=== PATIENT | female | born 1970 | race Caucasian/White ===

== ENCOUNTER → 2017-04-24 | Day surgery (SDC) | payer OTHER ==
--- NOTE | 2017-04-21 15:31 | Diagnostic Imaging Report ---
PROCEDURE: Frontal and lateral views of the chest. COMPARISON: None. INDICATIONS: PRE OPERATIVE CHEST X-RAY FOR FOOT SURGERY FINDINGS: Lines/tubes: None. Lungs: The lungs are well inflated and clear. There is no evidence of pneumonia or pulmonary edema. Pleura: There is no pleural effusion or pneumothorax. Heart and mediastinum: The heart and the mediastinum are normal. Bones: No acute bony abnormality. IMPRESSION: 1. No acute cardiopulmonary abnormalities. Nick Carlisle M.D. Dictated by: Nick Carlisle M.D. on 04/21/2017 at 15:30 Electronically approved by: Nick Carlisle M.D. on 04/21/2017 at 15:30
[~2017-04-24] MED LIST: ALPRAZOLAM1 MG PO; BENGAY113 GM TOP; BUPIVACAINE HCL 0.5% 10ML MPF VIAL INJ ONE; CLARITIN; CLINDAMYCIN PHOS 900MG/ D5W 50 50 ML IV ONE; CYMBALTA30 MG PO; DAYQUIL; DEXAMETHASONE SOD PHOS INJ 4 MG/ML VIAL ONE; EPHEDRINE SULFATE INJ 50 MG/10 ML SYR ONE; FENTANYL CITRATE/PF 100MCG/2 ML INJ ONE; GABAPENTIN400 MG PO; IBUPROFEN; KETOROLAC TROMETHAMINE 30 MG/ML VIAL ONE; LEVOTHYROXINE112 MCG PO; LIDOCAINE HCL 2% LOCAL INJ 5 ML SDV VIAL INJ ONE; MIDAZOLAM HCL 2 MG/2 ML VIAL ONE; NAPROSYN; NEOMYCIN/POLYMYX/BACITR OINT 0.9 GM PKT ONE; ONDANSETRON HCL INJ 2 MG/ML VIAL ONE; PROPOFOL IV EMULSION 10 MG/ML 20 ML VIAL ONE; SEVOFLURANE INHAL SOLN 250 ML PEN BTL ONE; SIMVASTATIN20 MG PO; SINUS; TYLENOL; ULTRAM50 MG PO; VASOTEC10 MG PO
--- OUTSIDE RECORDS SUMMARY | 2017-04-24 07:12 | XMS REPORT ---
Author Author [facility] Address Unknown Phone Unavailable Care Team Providers Care Quantitative Manager Name Role Phone RED HERNANDEZ Unavailable Unavailable Problems This patient has no known problems. Allergies, Adverse Reactions, Alerts This patient has no known allergies or adverse reactions. Medications This patient has no known medications. Results Test Description Test Time Test Comments Text Results Atomic Results Result Comments CHEST [address] [facility] [address] [address] Patient Name: KARLENE TRISTAN MR #: [id number] : 1970 Age/Sex: 46/F Req #: [id number] Adm Physician: Ordered by: RED HERNANDEZ DPM Report #: [id number] Location: OR Room/Bed: Procedure: [id number] DX/CHEST 2 VIEWS Exam Date: 04/21/17 Exam Time: 1450 REPORT STATUS: Signed PROCEDURE: Frontal and lateral views of the chest. COMPARISON: None. INDICATIONS: PRE OPERATIVE CHEST X- RAY FOR FOOT SURGERY FINDINGS: Lines/tubes: None. Lungs: The lungs are well inflated and clear. There is no evidence of pneumonia or pulmonary edema. Pleura: There is no pleural effusion or pneumothorax. Heart and mediastinum: The heart and the mediastinum are normal. Bones: No acute bony abnormality. IMPRESSION: 1. No acute cardiopulmonary abnormalities. Angelo Carlisle M.D. Dictated by : Angelo Carlisle M.D. on 04/21/2017 at 15:30 Electronically approved by: Angelo Carlisle M.D. on 04/21/2017 at 15:30 Dictated By : ANGELO CARLISLE MD [id number] Transcribed By: DAYANARA on 04/21/17 1530 COPY TO: RED HERNANDEZ DPM
--- OUTSIDE RECORDS SUMMARY | 2017-04-24 07:12 | XMS REPORT | Clinical Summary ---
Author Author [facility] Address Unknown Phone Unavailable Care Team Providers Care Speech Pathologist Assistant Name Role Phone Robinson Ackerman MD PCP Allergies Active Allergy Reactions Severity Noted Date Comments Penicillins Hives 12/15/2016 Current Medications Prescription Sig. Disp. Refills Start End Date Status Date levothyroxine (SYNTHROID, Take 112 mcg by mouth 0 09/26/19 Active LEVOXYL) 112 mcg tablet once daily. 17 enalapril (VASOTEC) 10 MG Take 10 mg by mouth once 1 11/22/19 Active tablet daily. 17 DULoxetine (CYMBALTA) 60 Take 60 mg by mouth once 0 09/30/19 Active MG capsule daily. 17 traMADol (ULTRAM) 50 mg Take 50 mg by mouth 3 0 11/26/19 Active tablet (three) times a day as 17 needed. loratadine (CLARITIN) 10 Take 1 tablet (10 mg 30 tablet 11 12/16/19 12/16/19 Active mg tabletIndications: Ear total) by mouth daily. 17 18 pain, bilateral, Nasal congestion ciprofloxacin-dexamethaso Administer 4 drops to the 7.5 mL 1 12/16/19 12/23/19 ne (CIPRODEX) 0.3-0.1 % right ear 2 (two) times a 17 17 otic suspension day for 7 days. Active Problems Problem Noted Date Ear pain, bilateral 12/15/2016 Nasal congestion 12/15/2016 Encounters Date Type Specialty Care Team Description 12/22/2016 Office Visit Otolaryngology Seun Dhillon MD Nasal congestion (Primary Dx); Ear pain, bilateral 12/15/2016 Office Visit Otolaryngology Seun Dhillon MD Ear pain, bilateral (Primary Dx); Nasal congestion after 04/23/2016 Social History Tobacco Use Types Packs/Day Years Used Date Never Smoker Alcohol Use Drinks/Week oz/Week Comments No Sex Assigned at Date Recorded Not on file Last Filed Vital Signs Vital Sign Reading Time Taken Blood Pressure 124/83 12/22/2016 10:05 AM CDT Pulse 61 12/22/2016 10:05 AM CDT Temperature - - Respiratory Rate - - Oxygen Saturation - - Inhaled Oxygen - - Concentration Weight 79.4 kg (175 lb) 12/22/2016 10:05 AM CDT Height 160 cm (5' 3") 12/22/2016 10:05 AM CDT Body Mass Index 31 12/22/2016 10:05 AM CDT Plan of Treatment Health Maintenance Due Date Last Done Comments PAP SMEAR 1989 INFLUENZA VACCINE 09/30/2016 Results Not on fileafter 04/23/2016 Insurance Payer Benefit Subscriber ID Type Phone Address Plan / Group AETNA AETNA PPO xxxxxxxxxx PPO OPEN CHOICE
--- NOTE | 2017-05-11 18:25 | Operative Report ---
DATE OF PROCEDURE: April 24, 2017 PREOPERATIVE DIAGNOSES 1. Calcaneal spur, left foot. 2. Plantar fasciitis, left foot with associated pain. PROCEDURES 1. Endoscopic plantar fasciotomy of the left foot. 2. Excision of the heel spur, left foot. ANESTHESIA: General endotracheal. HEMOSTASIS: Left thigh tourniquet at 350 mmHg. PROCEDURE IN DETAIL: The patient was taken to the operating room in a mildly sedated state, and placed upon the operating table in the supine position. Following induction of general anesthetic, the left lower extremity was elevated to 60 degrees to exsanguinate before inflating the pneumatic thigh tourniquet to 350 mmHg to create hemostasis. The left lower extremity was placed upon the operating table prior for the following procedure: PROCEDURE #1: Endoscopic plantar fasciotomy of the left foot. A medial stab incision was placed in the central arch of the left foot. The plantar fascia was identified and noted to be contracted through the cannula that was inserted medially and exited laterally. A hook knife was used to elongate the medial and leading edge of the central band of the plantar fascia. This having been accomplished, the area was irrigated with copious amounts of sterile saline solution. The incision sites were closed with 1 stitch each of 4-0 nylon. Attention was then directed to the area of the plantar heel spur. The heel spur was noted to be significantly plantar rodríguez. A J-shaped incision was made along the course of the plantar fascia and along the course of the medial plantar calcaneal tubercle. This having been opened approximately 3 cm in circumference, the plantar fascia was reflected from the spurring itself through fluoroscopy on a lateral pyridine. A rasp was inserted which then allowed for complete removal of the bony prominence utilizing a reciprocating rasps. This having been performed, the area was irrigated with copious amounts of sterile saline solution. Pre and postoperative fluoroscopy was used to check and ensure the removal of all prominences. This having been accomplished, the area was irrigated and closed with a combination of 3-0 Vicryl and 4-0 nylon. A TLS drain was installed. A posterior splint was the applied. Release of the pneumatic thigh tourniquet showed a normal hyperemic flush to all digits of the foot. The patient left the operating room with vital signs stable in apparent satisfactory condition, having tolerated both anesthetic and procedure very well. Job#: [id number] RI
== END | disposition home or self-care (01) ==
LOC: OR 07:10
PROVIDERS: ATTEND Podiatrist Foot Surgery
DX: M77.32 Calcaneal spur, left foot (principal); M72.2 Plantar fascial fibromatosis; E03.9 Hypothyroidism, unspecified; R51 Headache; K21.9 Gastro-esophageal reflux disease without esophagitis; F41.9 Anxiety disorder, unspecified; Z01.810 Encounter for preprocedural cardiovascular examination; Z01.818 Encounter for other preprocedural examination
CPT/HCPCS: 28104; 29893; 71046; 93005; C1762; J1100; J1885; J2001; J2250; J2405; 76000

== ENCOUNTER → 2017-06-05 | Day surgery (SDC) | payer OTHER ==
[2017-06-03 14:21] LABS: BASOPHILS % 0.4 % (0.0-1.0); EOSINOPHILS # (AUTO) 0.1 (0.0-0.4); EOSINOPHILS % 1.8 % (0.0-6.0); HEMATOCRIT 35.7 % (34.2-44.1); LYMPHOCYTES # (AUTO) 2.7 (1.0-3.2); LYMPHOCYTES % 36.6 % (18.0-39.1); MEAN CORPUSCULAR HEMOGLOBIN 31.7 pg (28-32); MEAN CORPUSCULAR HGB CONC 33.6 g/dL (31-35); MEAN CORPUSCULAR VOLUME 94.4 fL (81-99); MONOCYTES # (AUTO) 0.4 (0.2-0.8); MONOCYTES % 5.5 % (4.4-11.3); NEUTROPHILS % 55.1 % (38.7-80.0); PLATELET COUNT 228 x10e3/uL (140-360); RED BLOOD COUNT 3.78 x10e6/uL (3.6-5.1); RED CELL DISTRIBUTION WIDTH 12.6 % (11.7-14.4)
[~2017-06-05] MED LIST changes: -EPHEDRINE SULFATE INJ 50 MG/10 ML SYR ONE
--- OUTSIDE RECORDS SUMMARY | 2017-06-05 09:19 | XMS REPORT | Clinical Summary ---
Author Author [facility] Address Unknown Phone Unavailable Care Team Providers Care Cut Out Machine Operator Name Role Phone Robinson Ackerman MD PCP [...] pain, bilateral (Primary Dx); Nasal congestion after 06/04/2016 Social History Tobacco Use Types Packs/Day Years [...] Done Comments PAP SMEAR 1989 INFLUENZA VACCINE 09/30/2017 Results Not on fileafter 06/04/2016 Insurance Payer Benefit Subscriber ID Type Phone Address Plan / Group AETNA AETNA PPO xxxxxxxxxx PPO OPEN CHOICE
--- NOTE | 2017-06-11 00:24 | Operative Report ---
DATE OF PROCEDURE: June 05, 2017 PREOPERATIVE DIAGNOSES: Plantar fasciitis and plantar calcaneal spur, right foot. POSTOPERATIVE DIAGNOSES: Plantar fasciitis and plantar calcaneal spur, right foot. TITLE OF THE OPERATION: Endoscopic plantar fasciotomy of the right foot. PROCEDURE IN DETAIL: The patient was taken to the operating room in a mildly sedated state and placed upon the operating room table in supine position. Following induction of general anesthetic, the right lower extremity was elevated to 60 degrees to exsanguinate before inflating the pneumatic thigh tourniquet to 350 mmHg to create hemostasis. Right lower extremity was placed on the operating room table prior to performing the following procedure: Procedure #1: Endoscopic plantar fasciotomy of right foot. An approximate medial stab incision was placed at the medial aspect of the calcaneus. The incision was deepened via sharp and blunt dissection down to level of the plantar capsular structure. The plantar fascia itself was identified and hook knife was used to elongate the medial and central bands. The area was irrigated with copious amounts of sterile saline solution. Large spur was noted on the plantar calcaneal aspect. A 2nd incision was made overlying the spur, and utilizing a reciprocating rasp, the spur itself was resected. The area was irrigated once again and deep closure was 3-0 Vicryl, skin closure 4-0 Vicryl and 4-0 nylon. The areas of surgery were then blocked with 0.5 Marcaine and Decadron [place]. Human tissue allograft was injected to facilitate healing. Release of the pneumatic thigh tourniquet showed normal hyperemic flush to all digits of the right foot, and patient left the operating room with vital signs stable and in apparent satisfactory condition having tolerated both the anesthetic and procedure very well. Job#: [id number]
== END | disposition home or self-care (01) ==
LOC: OR 09:17
PROVIDERS: ATTEND Podiatrist Foot Surgery
DX: M72.2 Plantar fascial fibromatosis (principal); M77.31 Calcaneal spur, right foot; G89.29 Other chronic pain; G43.909 Migraine, unspecified, not intractable, without status migrainosus; E03.9 Hypothyroidism, unspecified; K21.9 Gastro-esophageal reflux disease without esophagitis; I10 Essential (primary) hypertension; Z88.0 Allergy status to penicillin; F41.9 Anxiety disorder, unspecified; Z01.812 Encounter for preprocedural laboratory examination
CPT/HCPCS: 28104; 29893; 36415; 85025; J1100; J1885; J2001; J2250; J2405; Q4100; 76001